=== PATIENT | female | born 1965 | race Caucasian/White ===

== ENCOUNTER 2016-11-30 18:48 | Emergency (ER) | payer OTHER ==
[2016-11-30] MEDS ORDERED: ASPIRIN 325 MG TABLET PO ONE (20:49)
[2016-11-30] MEDS ORDERED: ONDANSETRON 4 MG TAB.RAPDIS PO ONE (20:50)
--- NOTE | 2016-11-30 20:50 | ER Document Report ---
ED Medical Screen (RME) - General Chief Complaint: Nausea Stated Complaint: NAUSEA Time Seen by Provider: 11/30/16 20:44 Information source: Patient Notes: 51-year-old female who presents today stating the onset earlier today of some nausea and diaphoresis. She then developed some chest "pressure". She states a mild shortness of breath. 11 hour car travel from [place] on Tuesday. Patient denies any pain currently. She still states she is nauseous. EKG shows new anterior flipped T waves. TRAVEL OUTSIDE OF THE [place] 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 Renal/ Medical History: Denies: Hx Peritoneal Dialysis GI Medical History: Comment Only: Hx Gastroesophageal Reflux Disease - acid reflux Past Surgical History: Reports: Hx Breast Surgery, Hx Hysterectomy - 2004, Hx Tubal Ligation - 1999 - Immunizations Hx Diphtheria, Pertussis, Tetanus Vaccination: Yes Physical Exam - Vital signs Vitals: Temp Pulse Resp BP Pulse Ox 98.0 F 93 16 125/79 98 11/30/16 19:56 11/30/16 19:56 11/30/16 19:56 11/30/16 19:56 11/30/16 19:56 Course - Vital Signs Vital signs: Temp Pulse Resp BP Pulse Ox 98.0 F 93 16 125/79 98 11/30/16 19:56 11/30/16 19:56 11/30/16 19:56 11/30/16 19:56 11/30/16 19:56
[2016-11-30 21:18] LABS: ABSOLUTE BASOPHILS # (AUTO) 0.1 10^3/uL (0.0-0.2); ABSOLUTE LYMPHOCYTES (AUTO) 1.2 10^3/uL (0.5-4.7); ABSOLUTE MONOCYTES (AUTO) 0.8 10^3/uL (0.1-1.4); ABSOLUTE NEUT (AUTO) 8.6 10^3/uL (1.7-8.2); BASOPHILS % (AUTO) 0.5 % (0-2); EOSINOPHILS % (AUTO) 0.1 % (0-6); HEMATOCRIT 42.3 % (36.0-47.0); HEMOGLOBIN 13.6 g/dL (12.0-15.5); HGB HCT DIFFERENCE -1.5; LYMPHOCYTES % (AUTO) 11.6 % (13-45); MEAN CORPUSCULAR HEMOGLOBIN 27.4 pg (27.0-33.4); MEAN CORPUSCULAR HGB CONC 32.3 g/dL (32.0-36.0); MEAN CORPUSCULAR VOLUME 85 fl (80-97); MONOCYTES % (AUTO) 7.8 % (3-13); RED BLOOD COUNT 4.97 10^6/uL (3.72-5.28); RED CELL DISTRIBUTION WIDTH 14.7 % (11.5-14.0); WHITE BLOOD COUNT 10.7 10^3/uL (4.0-10.5)
[2016-11-30 21:42] LABS: ANION GAP 12 (5-19); BLOOD UREA NITROGEN 16 mg/dL (7-20); CALCIUM 9.5 mg/dL (8.4-10.2); CARBON DIOXIDE 24 mmol/L (22-30); CHLORIDE 102 mmol/L (98-107); CREATININE RESULT 0.73 mg/dL (0.52-1.25); GLUCOSE 93 mg/dL (75-110); POTASSIUM 3.8 mmol/L (3.6-5.0); SODIUM 137.5 mmol/L (137-145)
--- NOTE | 2016-11-30 22:14 | EKG REPORT ---
SEVERITY:- ABNORMAL ECG - SINUS RHYTHM NONSPECIFIC T ABNORMALITIES, ANTERIOR LEADS : Confirmed by: Melida Trejo MD 30-Nov-2016 22:13:43
--- NOTE | 2016-12-01 01:32 | ER Document Report ---
ED Cardiac - General Chief Complaint: Nausea Stated Complaint: NAUSEA Time Seen by Provider: 11/30/16 20:44 Mode of Arrival: Ambulatory Information source: Patient TRAVEL OUTSIDE OF THE [place] IN LAST 30 DAYS: No - HPI Patient complains to provider of: Chest pain, Chest tightness Was the onset of pain: Sudden Is the pain a: New problem Chest pain location: Substernal Quality of pain: Tightness Severity now: None Severity at worst: Moderate Pain level currently: 3 Chest pain precipitating factors: At Rest Cardiac risk factors: Dyslipidemia Associated symptoms: Diaphoresis, Nausea/vomiting Exacerbated by: Denies Relieved by: Nothing Similar symptoms previously: No Recently seen / treated by doctor: No Notes: Patient is a 51-year-old female with a history of high cholesterol and GERD, who presents to the emergency room complaining of 24-hour symptoms of nausea, diaphoresis, chest pain and leg pain, states it started around midnight yesterday, she received Zofran in the emergency room and reports feeling much better, she does report a history of a cardiac catheter in 2014 which was reported as normal, she recently took a road trip to [facility] which lasted approximately 10-12 hours, and she also uses an estrogen patch on the patient does not smoke - Related Data Allergies/Adverse Reactions: No Known Allergies Allergy (Unverified 12/31/14 16:14) Past Medical History - General Information source: Patient - Social History Smoking Status: Never Smoker Chew tobacco use (# tins/day): No Frequency of alcohol use: None Drug Abuse: None Family History: None Patient has suicidal ideation: No Patient has homicidal ideation: No - Past Medical History Cardiac Medical History: Reports: Hx Hypercholesterolemia Endocrine Medical History: Comment Only: 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 Renal/ Medical History: Denies: Hx Peritoneal Dialysis GI Medical History: Comment Only: Hx Gastroesophageal Reflux Disease - acid reflux Past Surgical History: Reports: Hx Breast Surgery, Hx Hysterectomy, Hx Tubal Ligation - Immunizations Hx Diphtheria, Pertussis, Tetanus Vaccination: Yes Review of Systems - Review of Systems Constitutional: See HPI EENT: No symptoms reported Cardiovascular: See HPI Respiratory: No symptoms reported Gastrointestinal: See HPI Genitourinary: No symptoms reported Female Genitourinary: No symptoms reported Musculoskeletal: No symptoms reported Skin: No symptoms reported Hematologic/Lymphatic: No symptoms reported Neurological/Psychological: No symptoms reported -: Yes All other systems reviewed and negative Physical Exam - Vital signs Vitals: Temp Pulse Resp BP Pulse Ox 98.0 F 93 16 125/79 98 11/30/16 19:56 11/30/16 19:56 11/30/16 19:56 11/30/16 19:56 11/30/16 19:56 Interpretation: Normal - General General appearance: Appears well, Alert - HEENT Head: Normocephalic, Atraumatic Eyes: Normal Pupils: PERRL - Respiratory Respiratory status: No respiratory distress Chest status: Nontender Breath sounds: Normal Chest palpation: Normal - Cardiovascular Rhythm: Regular Heart sounds: Normal auscultation Murmur: No - Abdominal Inspection: Normal Distension: No distension Bowel sounds: Normal Tenderness: Nontender Organomegaly: No organomegaly - Back Back: Normal, Nontender - Extremities General upper extremity: Normal inspection, Nontender, Normal color, Normal ROM , Normal temperature General lower extremity: Normal inspection, Nontender, Normal color, Normal ROM , Normal temperature, Normal weight bearing. No: Marleny's sign - Neurological Neuro grossly intact: Yes Cognition: Normal Orientation: AAOx4 [place] Coma Scale Eye Opening: Spontaneous [place] Coma Scale Verbal: Oriented [place] Coma Scale Motor: Obeys Commands [place] Coma Scale Total: 15 Speech: Normal Motor strength normal: LUE, RUE, LLE, RLE Sensory: Normal - Psychological Associated symptoms: Normal affect, Normal mood - Skin Skin Temperature: Warm Skin Moisture: Dry Skin Color: Normal Course - Re-evaluation Re-evalutation: 12/01/16 01:34 Patient with risk factors for possible PE, including hormone replacement therapy and a recent long road trip, therefore CTA has been ordered to rule out PE 12/01/16 02:40 Lab and imaging findings discussed with patient at bedside which are unremarkable, she will be discharged with a Zofran dose pack and information for follow-up, advised to return if symptoms worsen, patient acknowledges understanding and agreement with this plan - Vital Signs Vital signs: Temp Pulse Resp BP Pulse Ox 98.0 F 85 16 105/64 97 11/30/16 19:56 12/01/16 02:13 12/01/16 02:13 12/01/16 02:13 12/01/16 02:13 - Laboratory Result Diagrams: 11/30/16 21:00 11/30/16 21:00 Laboratory results interpreted by me: 11/30/16 21:00 WBC 10.7 H RDW 14.7 H Seg Neutrophils % 80.0 H Lymphocytes % 11.6 L Absolute Neutrophils 8.6 H - Diagnostic Test Radiology reviewed: Image reviewed, Reports reviewed - EKG Interpretation by Me EKG shows normal: Sinus rhythm Rate: Normal Rhythm: NSR When compared to previous EKG there are: Changes noted - Patient has inverted T waves in anterior leads Discharge - Discharge Clinical Impression: Nausea, Epigastric abdominal pain Chest pain Qualifiers: Chest pain type: unspecified Qualified Code(s): R07.9 - Chest pain, unspecified Condition: Stable Disposition: HOME, SELF-CARE Instructions: Antinausea Medication ([facility]), Abdominal Pain ([facility]), Chest Pain of Unclear Cause ([facility]) Additional Instructions: Follow up with your primary care provider in one to 2 days. Return to the emergency room immediately if symptoms worsen or any additional concerns.
[2016-12-01] MEDS ORDERED: ONDANSETRON ODT 4 MG TAB (6 TAB/DSPK) PO PRN (02:41)
[2016-12-01 03:06] VITALS: BP 116/82
== END 2016-12-01 03:04 | disposition home or self-care (01) ==
LOC: ER 18:48
DX: R11.2 Nausea with vomiting, unspecified (principal); R10.13 Epigastric pain; R07.89 Other chest pain; R61 Generalized hyperhidrosis; Z87.19 Personal history of other diseases of the digestive system; M79.606 Pain in leg, unspecified; E11.9 Type 2 diabetes mellitus without complications; Z79.890 Hormone replacement therapy
CPT/HCPCS: 93005; 99284; 36415; 85025; 80048; 84484; 71020; 71275; 93010; S0119

== ENCOUNTER 2018-03-06 09:49 | Emergency (ER) | payer OTHER ==
--- NOTE | 2018-03-06 10:26 | EKG REPORT ---
SEVERITY:- BORDERLINE ECG - SINUS RHYTHM BORDERLINE T ABNORMALITIES, ANTERIOR LEADS : Confirmed by: Julianne Faulkner 06-Mar-2018 10:26:09
[2018-03-06] MEDS ORDERED: ASPIRIN 81 MG TABLET, CHEWABLE PO ONE (11:14)
--- NOTE | 2018-03-06 11:16 | ER Document Report ---
ED Medical Screen (RME) - General Mode of Arrival: Ambulatory Information source: Patient TRAVEL OUTSIDE OF THE [place] IN LAST 30 DAYS: No <JESSIE CORTEZ - Last Filed: 03/06/18 11:15> <MONTEZ ALEX - Last Filed: 03/06/18 19:24> - General Chief Complaint: Chest Tightness Stated Complaint: CHEST PAIN Time Seen by Provider: 03/06/18 11:14 Notes: 52-year-old female with a history of diabetes, dyslipidemia who presents to the emergency room with intermittent chest tightness and fluttering the chest. Patient has had similar symptoms in the past. She did have a normal cardiac catheterization in 2014 because she was having similar symptoms as well as an abnormal EKG at that time. She now is followed by [facility]. She states that in the past week, the fluttering the chest and the chest tightness have been coming and going every day. She states that that is changed. She denies any smoking history. 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 Renal/ Medical History: Denies: Hx Peritoneal Dialysis GI Medical History: Reports: Hx Gastroesophageal Reflux Disease - acid reflux Past Surgical History: Reports: Hx Breast Surgery, Hx Hysterectomy, Hx Tubal Ligation - Immunizations Hx Diphtheria, Pertussis, Tetanus Vaccination: Yes <JESSIE CORTEZ - Last Filed: 03/06/18 11:15> - Vital signs Vitals: Temp Pulse Resp BP Pulse Ox 98.6 F 85 16 139/86 H 98 03/06/18 09:54 03/06/18 09:54 03/06/18 09:54 03/06/18 09:54 03/06/18 09:54 Course - Laboratory Result Diagrams: 03/06/18 11:37 03/06/18 11:37 <MONTEZ ALEX - Last Filed: 03/06/18 19:24> - Vital Signs Vital signs: Temp Pulse Resp BP Pulse Ox 98.6 F 85 16 139/86 H 98 03/06/18 09:54 03/06/18 09:54 03/06/18 09:54 03/06/18 09:54 03/06/18 09:54 - Laboratory Laboratory results interpreted by me: 03/06/18 11:37 RDW 15.6 H Doctor's Discharge <JESSIE CORTEZ - Last Filed: 03/06/18 11:15> <MONTEZ ALEX - Last Filed: 03/06/18 19:24> - Discharge Clinical Impression: Palpitation, Shortness of breath Condition: Good Disposition: HOME, SELF-CARE Instructions: Palpitations (Irregular or Rapid Heartrate) ([facility]), Chest Pain of Unclear Cause ([facility]) Additional Instructions: You were seen today for your palpitations, you had an evaluation including multiple blood tests a chest x-ray and EKG none of which showed what was the cause of your palpitations. You should call your primary physician in regards to today's visit. It is possible that your palpitations are a result of your seasonal allergies, some undiagnosed underlying condition, your primary heart problem which may benefit from a monitor. Return for worsening shortness of breath or chest pains. You may use the steroids prescribed to you to help with the inflammation in your lungs if you like. Prescriptions: Prednisone [Deltasone 20 mg Tablet] 3 tab PO DAILY 5 Days #15 tablet
--- NOTE | 2018-03-06 12:21 | RADIOLOGY REPORT (SQ) ---
EXAM DESCRIPTION: CHEST SINGLE VIEW COMPLETED DATE/TIME: 03/06/2018 11:54 am REASON FOR STUDY: cp COMPARISON: 11/30/2016 EXAM PARAMETERS: NUMBER OF VIEWS: One view. TECHNIQUE: Single frontal radiographic view of the chest acquired. RADIATION DOSE: NA LIMITATIONS: None. FINDINGS: LUNGS AND PLEURA: No opacities, masses or pneumothorax. No pleural effusion. MEDIASTINUM AND HILAR STRUCTURES: No masses. Contour normal. HEART AND VASCULAR STRUCTURES: Heart normal in size. Normal vasculature. BONES: No acute findings. HARDWARE: None in the chest. OTHER: No other significant finding. IMPRESSION: NO ACUTE RADIOGRAPHIC FINDING IN THE CHEST. TECHNICAL DOCUMENTATION: JOB ID: [id number] [employer] All Rights Reserved Reading location - IP/workstation name: [email or web address]
[2018-03-06] MEDS ORDERED: ASPIRIN 81 MG TABLET, CHEWABLE ONE (15:31)
[2018-03-06 15:39] LABS: ABSOLUTE BASOPHILS # (AUTO) 0.1 10^3/uL (0.0-0.2); ABSOLUTE EOSINOPHILS # (AUTO) 0.1 10^3/uL (0.0-0.6); ABSOLUTE LYMPHOCYTES (AUTO) 3.2 10^3/uL (0.5-4.7); ABSOLUTE MONOCYTES (AUTO) 0.6 10^3/uL (0.1-1.4); BASOPHILS % (AUTO) 0.8 % (0-2); EOSINOPHILS % (AUTO) 1.3 % (0-6); HEMATOCRIT 39.1 % (36.0-47.0); LYMPHOCYTES % (AUTO) 35.8 % (13-45); MEAN CORPUSCULAR HEMOGLOBIN 27.8 pg (27.0-33.4); MEAN CORPUSCULAR HGB CONC 33.3 g/dL (32.0-36.0); MEAN CORPUSCULAR VOLUME 84 fl (80-97); MONOCYTES % (AUTO) 6.6 % (3-13); PLATELET COUNT 275 10^3/uL (150-450); RED BLOOD COUNT 4.67 10^6/uL (3.72-5.28); RED CELL DISTRIBUTION WIDTH 15.6 % (11.5-14.0); SEGMENTED NEUTROPHILS % (AUTO) 55.5 % (42-78); TOTAL CELLS COUNTED % (AUTO) 100 %
[2018-03-06 15:46] LABS: ALANINE AMINOTRANSFERASE 19 U/L (9-52); ALBUMIN 4.3 g/dL (3.5-5.0); ALKALINE PHOSPHATASE 62 U/L (38-126); ANION GAP 13 (5-19); ASPARTATE AMINO TRANSFERASE 26 U/L (14-36); BILIRUBIN,DIRECT 0.3 mg/dL (0.0-0.4); BILIRUBIN,TOTAL 0.7 mg/dL (0.2-1.3); BLOOD UREA NITROGEN 16 mg/dL (7-20); CALCIUM 9.5 mg/dL (8.4-10.2); CARBON DIOXIDE 25 mmol/L (22-30); CHLORIDE 104 mmol/L (98-107); CREATINE KINASE 68 U/L (30-135); GLUCOSE 93 mg/dL (75-110); POTASSIUM 4.3 mmol/L (3.6-5.0); SODIUM 142.1 mmol/L (137-145); TOTAL PROTEIN 7.5 g/dL (6.3-8.2)
[2018-03-06 15:57] LABS: CREATINE KINASE MB 0.48 ng/mL (<4.55)
[2018-03-06 15:59] LABS: TROPONIN I < 0.012 ng/mL
[2018-03-06 17:03] VITALS: BP 122/85
--- NOTE | 2018-03-06 19:29 | ER Document Report ---
ED Cardiac - General Chief Complaint: Chest Tightness Stated Complaint: CHEST PAIN Time Seen by Provider: 03/06/18 11:14 Mode of Arrival: Ambulatory TRAVEL OUTSIDE OF THE [place] IN LAST 30 DAYS: No - HPI Patient complains to provider of: Chest tightness - This 52-year-old female presents for evaluation of palpitations as well as some shortness of breath which she has had for the last 2 years, she has been evaluated multiple times for this in the past and was attempting to obtain standard outpatient follow-up today with her primary physician when she contacted them because of the symptoms they said that she needed to come to the emergency room. She notes that she has been seen by consulting nurse as well as her primary physician for this complaint multiple times undergone a catheterization as well as a stress test without any obvious cause of her being identified. Nothing is ever seen to make the symptoms any better, she has never tried any specific medications to help with the palpitations. She denies any recent ingestions stimulants or other possible underlying causes. 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 Renal/ Medical History: Denies: Hx Peritoneal Dialysis GI Medical History: Reports: Hx Gastroesophageal Reflux Disease - acid reflux Past Surgical History: Reports: Hx Breast Surgery, Hx Hysterectomy, Hx Tubal Ligation - Immunizations Hx Diphtheria, Pertussis, Tetanus Vaccination: Yes Review of Systems - Review of Systems -: Yes All other systems reviewed and negative Physical Exam - Vital signs Vitals: Temp Pulse Resp BP Pulse Ox 98.6 F 85 16 139/86 H 98 03/06/18 09:54 03/06/18 09:54 03/06/18 09:54 03/06/18 09:54 03/06/18 09:54 - General General appearance: Appears well In distress: None - HEENT Head: Normocephalic Eyes: Normal Conjunctiva: Normal Cornea: Normal - Respiratory Respiratory status: No respiratory distress Chest status: Nontender Breath sounds: Normal Chest palpation: Normal - Cardiovascular Rhythm: Regular Heart sounds: Normal auscultation Murmur: No - Abdominal Inspection: Normal Distension: No distension Tenderness: Nontender - Back Back: Normal - Extremities General upper extremity: Normal inspection General lower extremity: Normal inspection - Neurological Neuro grossly intact: Yes Cognition: Normal Orientation: AAOx4 - Psychological Associated symptoms: Normal affect Course - Re-evaluation Re-evalutation: 03/06/18 19:27 This 52-year-old female presented for evaluation of palpitations and chest tightness which she has had for the last 2 years. She is undergone a myriad of tests related to this without any obvious cause of her being identified for her symptoms. She has had her thyroid checked as well as had a catheterization stress test in the examinations all which have been nondiagnostic. She does have a history of hypertension and prediabetes. Otherwise has no complaints at this time. Examination and while she is at rest she is not actively having the symptoms. This patient's remarkably well appearing on examination while on monitor she has nondiagnostic EKG, has no runs of arrhythmia that are appreciable on the monitor despite her having symptoms at that time, she has got a negative initial troponin and unremarkable chemistry count. Patient with 2 negative troponins. Spoke with her at length about the potential underlying causes of palpitations, she has in the past had a cough and some potential shortness of breath she believes may be related to her lungs that she has been told she has asthma once and then allergies being treated with an inhaler only with minimal symptomatic improvement. As her symptoms have seemed to worsen since the weather has changed will attempt to improve her symptoms utilizing brief course of steroids. Encouraged to follow-up with her primary physician as she was previously scheduled to today for further possible diagnostics including but not limited to potentially a Holter monitor repeat stress test or further blood work. I spoke to her about the importance of follow-up in case of any worsening. Patient was ambulatory and symptom-free at the time of discharge. - Vital Signs Vital signs: Temp Pulse Resp BP Pulse Ox 98.6 F 85 16 122/85 100 03/06/18 09:54 03/06/18 09:54 03/06/18 16:01 03/06/18 16:01 03/06/18 16:01 - Laboratory Result Diagrams: 03/06/18 11:37 03/06/18 11:37 Laboratory results interpreted by me: 03/06/18 11:37 RDW 15.6 H Discharge - Discharge Clinical Impression: Palpitation, Shortness of breath Condition: Good Disposition: HOME, SELF-CARE Instructions: Chest Pain of Unclear Cause ([facility]), Palpitations (Irregular or Rapid Heartrate) ([facility]) Additional Instructions: You were seen today for your palpitations, you had an evaluation including multiple blood tests a chest x-ray and EKG none of which showed what was the cause of your palpitations. You should call your primary physician in regards to today's visit. It is possible that your palpitations are a result of your seasonal allergies, some undiagnosed underlying condition, your primary heart problem which may benefit from a monitor. Return for worsening shortness of breath or chest pains. You may use the steroids prescribed to you to help with the inflammation in your lungs if you like. Prescriptions: Prednisone [Deltasone 20 mg Tablet] 3 tab PO DAILY 5 Days #15 tablet Referrals: MABLE TOBIN DO [Primary Care Provider] - Follow up as needed
== END 2018-03-06 17:02 | disposition home or self-care (01) ==
LOC: ER 09:49
DX: R00.2 Palpitations (principal); R06.02 Shortness of breath; R07.89 Other chest pain; I10 Essential (primary) hypertension
CPT/HCPCS: 36415; 71045; 80053; 82550; 82553; 84484; 85025; 93005; 93010; 99285

== ENCOUNTER 2018-11-17 05:33 | Emergency (ER) | payer OTHER ==
[2018-11-17] MEDS ORDERED: DIAZEPAM INJ 10 MG/2 ML DISP.SYRIN IV ONE (06:43)
[2018-11-17] MEDS ORDERED: NORMAL SALINE 1000 ML 1,000 ML IV ONE (06:43)
[2018-11-17] MEDS ORDERED: DIPHENHYDRAMINE HCL 50 MG/ML VIAL IV ONE (06:43)
[2018-11-17] MEDS ORDERED: ONDANSETRON HCL INJ/PF 4 MG/2 ML SDV IV ONE ×2 (06:43→06:57)
[2018-11-17] MEDS ORDERED: MECLIZINE HCL 25 MG TABLET PO ONE (06:43)
--- NOTE | 2018-11-17 06:47 | ER Document Report ---
ED General - General Chief Complaint: Abdominal Cramping Stated Complaint: ABDOMINAL PAIN Time Seen by Provider: 11/17/18 06:35 Primary Care Provider: MABLE TOBIN DO [Primary Care Provider] - Follow up as needed Mode of Arrival: Medic Information source: Patient, Emergency Med Personnel, [facility] Records Notes: 53-year-old female with diabetes, hyperlipidemia, hypertension, reflux, diverticulosis presents with complaint of left lower quadrant abdominal pain that started 6-week prior to arrival with worsening pain 1 week ago. Patient describes the pain as constant, stabbing and associated with nausea no vomiting. Patient's last bowel movement was yesterday. She denies any black or bloody stools. She does state that she has a history of constipation for which she takes medicine for intermittently. Patient denies fever, chills, chest pain, shortness of breath, dysuria, vaginal discharge, back pain TRAVEL OUTSIDE OF THE [place] IN LAST 30 DAYS: No - HPI Onset: Other Onset/Duration: Constant Quality of pain: Stabbing Severity: Mild Associated symptoms: Nausea, Other. denies: Shortness of breath Exacerbated by: Food Similar symptoms previously: Yes Recently seen / treated by doctor: No - Related Data Allergies/Adverse Reactions: No Known Allergies Allergy (Verified 03/06/18 11:06) Past Medical History - General Information source: Patient, [facility] Records - Social History Smoking Status: Never Smoker Frequency of alcohol use: None Drug Abuse: None Lives with: Family Family History: None Patient has suicidal ideation: No Patient has homicidal ideation: No - Past Medical History Cardiac Medical History: Reports: Hx Hypercholesterolemia Endocrine Medical History: Comment Only: 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 Renal/ Medical History: Denies: Hx Peritoneal Dialysis GI Medical History: Reports: Hx Gastroesophageal Reflux Disease - acid reflux Past Surgical History: Reports: Hx Breast Surgery, Hx Hysterectomy, Hx Tubal Ligation - Immunizations Hx Diphtheria, Pertussis, Tetanus Vaccination: Yes Review of Systems - Review of Systems Notes: REVIEW OF SYSTEMS: CONSTITUTIONAL : Denies fever, chills, or sweats. Denies recent illness. Denies weight loss, recent hospitalizations. EENT: Denies visual changes, eye pain. Denies sore throat, oral lesions, difficulty swallowing. CARDIOVASCULAR: Denies chest pain. Denies palpitations. Denies lower extremity edema. RESPIRATORY: Denies cough. Denies shortness of breath, wheezing. GASTROINTESTINAL: Denies abdominal distention. Denies vomiting, or diarrhea. Denies blood in vomitus, stools, or per rectum. Denies black, tarry stools. GENITOURINARY: Denies difficulty urinating, painful urination, frequency, blood in urine, or vaginal discharge. MUSCULOSKELETAL: Denies back or neck pain or stiffness. Denies joint pain or swelling. SKIN: Denies rash, lesions or sores. HEMATOLOGIC : Denies easy bruising or bleeding. LYMPHATIC: Denies swollen glands. NEUROLOGICAL: Denies confusion or altered mental status. Denies loss of consciousness. Denies dizziness or lightheadedness. Denies headache. Denies weakness or paralysis. Denies problems difficulty with ambulation, slurred speech. Denies sensory loss, numbness, or tingling. Denies seizures. PSYCHIATRIC: Denies anxiety or stress. Denies depression, suicidal ideation, or homicidal ideation. Denies visual or auditory hallucinations. Physical Exam - Vital signs Vitals: Temp Pulse Resp BP Pulse Ox 97.8 F 93 18 107/70 98 11/17/18 05:42 11/17/18 05:42 11/17/18 05:42 11/17/18 05:42 11/17/18 05:42 - Notes Notes: PHYSICAL EXAMINATION: GENERAL: Well-appearing, well-nourished and in no acute distress. HEAD: Atraumatic, normocephalic. EYES: Pupils equal round and reactive to light, extraocular movements intact, conjunctiva are normal. ENT: Nares patent, oropharynx clear without exudates. Moist mucous membranes. NECK: Normal range of motion, supple without lymphadenopathy LUNGS: Breath sounds clear to auscultation bilaterally and equal. No wheezes rales or rhonchi. HEART: Regular rate and rhythm without murmurs ABDOMEN: Soft, suprapubic and left lower quadrant abdominal pain, nondistended abdomen. No guarding, no rebound. No masses appreciated. Female : deferred Musculoskeletal: Normal range of motion, no pitting or edema. No cyanosis. NEUROLOGICAL: Cranial nerves grossly intact. Normal speech, normal gait. Normal sensory, motor exams PSYCH: Normal mood, normal affect. SKIN: Warm, Dry, normal turgor, no rashes or lesions noted. Course - Re-evaluation Re-evalutation: 11/17/18 13:33 Laboratory 11/17/18 11/17/18 11/17/18 07:35 07:55 07:55 WBC 15.6 H RBC 4.86 Hgb 13.5 Hct 40.7 MCV 84 MCH 27.7 MCHC 33.1 RDW 15.1 H Plt Count 278 Seg Neutrophils % 81.9 H Lymphocytes % 9.9 L Monocytes % 7.6 Eosinophils % 0.1 Basophils % 0.5 Absolute Neutrophils 12.7 H Absolute Lymphocytes 1.5 Absolute Monocytes 1.2 Absolute Eosinophils 0.0 Absolute Basophils 0.1 Sodium 138.2 Potassium 4.3 Chloride 101 Carbon Dioxide 27 Anion Gap 10 BUN 16 Creatinine 0.72 Est GFR ( Amer) > 60 Est GFR (Non-Af Amer) > 60 Glucose 95 Calcium 9.8 Total Bilirubin 0.8 Direct Bilirubin 0.3 Neonat Total Bilirubin Not Reportable Neonat Direct Bilirubin Not Reportable Neonat Indirect Bili Not Reportable AST 19 ALT 33 Alkaline Phosphatase 89 Total Protein 7.3 Albumin 4.4 Urine Color YELLOW Urine Appearance CLEAR Urine pH 6.0 Ur Specific [place] 1.020 Urine Protein NEGATIVE Urine Glucose (UA) NEGATIVE Urine Ketones 20 H Urine Blood NEGATIVE Urine Nitrite NEGATIVE Urine Bilirubin NEGATIVE Urine Urobilinogen NEGATIVE Ur Leukocyte Esterase NEGATIVE Urine WBC (Auto) 1 Urine RBC (Auto) 0 Squamous Epi Cells Auto 2 Urine Mucus (Auto) RARE Urine Ascorbic Acid NEGATIVE Abdomen/Pelvis CT 11/17/18 06:57 IMPRESSION: There is pancolonic diverticulosis with marked wall thickening and fat stranding about the mid sigmoid in the low pelvis. Findings are consistent with acute diverticulitis. There is no overt evidence of perforation or abscess, however very thickened section of wall of the mid sigmoid colon is suspicious for phlegmon formation (series 3, image 67). Trace free fluid in the low pelvis. Temp Pulse Resp BP Pulse Ox 98.0 F 99 18 95/66 L 95 11/17/18 12:00 11/17/18 12:00 11/17/18 12:00 11/17/18 12:00 11/17/18 12:00 53-year-old female with a history of diverticulosis presents with left lower quadrant abdominal pain. Patient has had associated nausea without vomiting. Vital signs reviewed and within normal limits. Patient is afebrile, normotensive and not hypoxic or tachycardic. CT of the abdomen pelvis is significant for acute diverticulitis. Patient has been able to tolerate p.o. She did receive Zosyn, Flagyl during her ED course. CT findings were discussed with the patient including the risk for abscess development. At this point because she is afebrile and not vomiting I feel the patient can be tried as an outpatient with antibiotics. She was encouraged to return with worsening pain, development of fever or development of vomiting. 11/17/18 13:34 Patient was evaluated and treated as appropriate for the patient's presenting symptoms and complaint, with consideration of any critical or life threatening conditions that may be associated with their obtained history and exam as noted above. All results were discussed with patient . Patient provided the opportunity to ask questions, and express concerns. Patient was educated on treatments based on their presumed diagnosis as noted above. At this time we will discharge the patient with return precautions and follow-up recommendatio ns. Verbal discharge instructions given a the bedside. Medication warnings reviewed. Patient is in agreement with this plan and has verbalized understanding of return precautions. After careful consideration I feel that that patient can be safely discharged from the emergency department, they were advised to followup with a primary care physician in 2-3 days. Dictation on this chart was performed using voice recognition software and may result in unintended grammatical, spelling, syntax or errors. - Vital Signs Vital signs: Temp Pulse Resp BP Pulse Ox 98.0 F 99 18 95/66 L 95 11/17/18 12:00 11/17/18 12:00 11/17/18 12:00 11/17/18 12:00 11/17/18 12:00 - Laboratory Result Diagrams: 11/17/18 07:55 11/17/18 07:55 Laboratory results interpreted by me: 11/17/18 11/17/18 07:35 07:55 WBC 15.6 H RDW 15.1 H Seg Neutrophils % 81.9 H Lymphocytes % 9.9 L Absolute Neutrophils 12.7 H Urine Ketones 20 H - Diagnostic Test Radiology reviewed: Image reviewed, Reports reviewed Discharge - Discharge Clinical Impression: Diverticulitis, LLQ abdominal pain, Nausea Condition: Good Disposition: HOME, SELF-CARE Instructions: Abdominal Pain ([facility]), Diverticulitis ([facility]), Nausea or Vomiting, Nonspecific ([facility]) Additional Instructions: Your CAT scan showed diverticulitis. Currently there is no perforation or abscess but this could develop so please do not hesitate to return with worsening pain, development of fever or intractable vomiting or any other symptoms that are worrisome to you. Please follow-up with your primary care physician on Tuesday if you seem to be feeling better. Follow up with your [id number] hours for further care or return to the ED IMMEDIATELY if symptoms worsen or you have any concerns. If you cannot afford to follow up with your primary care physician a list of low cost clinics have been provided at the end of your discharge papers as well. Most prescribed medications have multiple side effects. The safest thing to do is when filling your prescription speak to your pharmacist regarding possible interactions with your normal home medications and over the counter medications such as Ibuprofen, Tylenol, Benadryl. If you experience any symptoms that cause you discomfort or concern you should discontinue the medication immediately and return to the emergency room or call your primary care physician. Prescriptions: Ciprofloxacin HCl [Cipro 500 mg Tablet] 500 mg PO BID 7 Days #14 tablet Metronidazole [Flagyl] 500 mg PO BID 7 Days #14 tablet Ondansetron [Zofran Odt 4 mg Tablet] 1 - 2 tab PO Q4H PRN #15 tab.rapdis PRN Reason: For Nausea/Vomiting Oxycodone HCl/Acetaminophen [Percocet 5-325 mg Tablet] 1 tab PO Q6H PRN #15 tablet PRN Reason: Referrals: MABLE TOBIN DO [Primary Care Provider] - Follow up in 3-5 days
[2018-11-17] MEDS ORDERED: MORPHINE SULFATE 10 MG/ML INJ IV ONE (06:57)
[2018-11-17] MEDS ORDERED: DIPHENHYDRAMINE HCL 50 MG/ML VIAL ONE (07:42)
[2018-11-17 08:00] LABS: APPEARANCE,URINE CLEAR; BILIRUBIN,URINE NEGATIVE (NEGATIVE); COLOR,URINE YELLOW; GLUCOSE, URINE NEGATIVE (NEGATIVE); KETONES,URINE 20 mg/dL (NEGATIVE); LEUKOCYTE ESTERASE,URINE NEGATIVE (NEGATIVE); NITRITE,URINE NEGATIVE (NEGATIVE); PROTEIN,URINE NEGATIVE (NEGATIVE); UROBILINOGEN,URINE NEGATIVE mg/dL (<2.0)
[2018-11-17 08:03] LABS: ABSOLUTE BASOPHILS # (AUTO) 0.1 10^3/uL (0.0-0.2); ABSOLUTE LYMPHOCYTES (AUTO) 1.5 10^3/uL (0.5-4.7); ABSOLUTE MONOCYTES (AUTO) 1.2 10^3/uL (0.1-1.4); ABSOLUTE NEUT (AUTO) 12.7 10^3/uL (1.7-8.2); BASOPHILS % (AUTO) 0.5 % (0-2); EOSINOPHILS % (AUTO) 0.1 % (0-6); HEMATOCRIT 40.7 % (36.0-47.0); HEMOGLOBIN 13.5 g/dL (12.0-15.5); LYMPHOCYTES % (AUTO) 9.9 % (13-45); MEAN CORPUSCULAR HEMOGLOBIN 27.7 pg (27.0-33.4); MEAN CORPUSCULAR HGB CONC 33.1 g/dL (32.0-36.0); MEAN CORPUSCULAR VOLUME 84 fl (80-97); MONOCYTES % (AUTO) 7.6 % (3-13); PLATELET COUNT 278 10^3/uL (150-450); RED BLOOD COUNT 4.86 10^6/uL (3.72-5.28); RED CELL DISTRIBUTION WIDTH 15.1 % (11.5-14.0); SEGMENTED NEUTROPHILS % (AUTO) 81.9 % (42-78); TOTAL CELLS COUNTED % (AUTO) 100 %; WHITE BLOOD COUNT 15.6 10^3/uL (4.0-10.5)
[2018-11-17 08:42] LABS: ALANINE AMINOTRANSFERASE 33 U/L (9-52); ALBUMIN 4.4 g/dL (3.5-5.0); ALKALINE PHOSPHATASE 89 U/L (38-126); ANION GAP 10 (5-19); ASPARTATE AMINO TRANSFERASE 19 U/L (14-36); BILIRUBIN,DIRECT 0.3 mg/dL (0.0-0.4); BILIRUBIN,TOTAL 0.8 mg/dL (0.2-1.3); BLOOD UREA NITROGEN 16 mg/dL (7-20); CALCIUM 9.8 mg/dL (8.4-10.2); CARBON DIOXIDE 27 mmol/L (22-30); CHLORIDE 101 mmol/L (98-107); GLUCOSE 95 mg/dL (75-110); POTASSIUM 4.3 mmol/L (3.6-5.0); SODIUM 138.2 mmol/L (137-145); TOTAL PROTEIN 7.3 g/dL (6.3-8.2)
--- NOTE | 2018-11-17 09:39 | RADIOLOGY REPORT (SQ) ---
EXAM DESCRIPTION: CT ABD/PELVIS WITH IV ONLY COMPLETED DATE/TIME: 11/17/2018 9:21 am REASON FOR STUDY: llq pain h/o diverticulosis COMPARISON: 09/01/2015 TECHNIQUE: CT scan of the abdomen and pelvis performed using helical scanning technique with dynamic intravenous contrast injection. No oral contrast. Images reviewed with lung, soft tissue, and bone windows. Reconstructed coronal and sagittal MPR images reviewed. Delayed images for evaluation of the urinary system also acquired. All images stored on PACS. All CT scanners at this facility use dose modulation, iterative reconstruction, and/or weight based d osing when appropriate to reduce radiation dose to as low as reasonably achievable (ALARA). [facility]: Dose Right [facility]: CareDose [facility]: Dose Right [facility]: Teradose 4D [facility]: RemCare CONTRAST TYPE AND DOSE: contrast/concentration: Isovue 350.00 mg/ml; Total Contrast Delivered: 63.0 ml; Total Saline Delivered: 65.0 ml RENAL FUNCTION: GFR > 60. RADIATION DOSE: CT Rad equipment meets quality standard of care and radiation dose reduction techniq ues were employed. CTDIvol: 4.9 - 5.7 mGy. DLP: 529 mGy-cm.. LIMITATIONS: None. FINDINGS: LOWER CHEST: No significant findings. No nodules or infiltrates. LIVER: Normal size. No masses. No dilated ducts. SPLEEN: Normal size. No focal lesions. PANCREAS: No masses. No significant calcifications. No adjacent inflammation or peripancreatic fluid collections. Pancreatic duct not dilated. GALLBLADDER: No identified stones by CT criteria. No inflammatory changes to suggest cholecystitis. ADRENAL GLANDS: No significant masses or asymmetry. RIGHT KIDNEY AND URETER: No solid masses. No significant calcifications. No hydronephrosis or hyd roureter. LEFT KIDNEY AND URETER: No solid masses. No significant calcifications. No hydronephrosis or hydr oureter. AORTA AND VESSELS: No aneurysm. No dissection. Renal arteries, SMA, celiac without stenosis. RETROPERITONEUM: No retroperitoneal adenopathy, hemorrhage or masses. BOWEL AND PERITONEAL CAVITY: There is pancolonic diverticulosis with marked wall thickening and fat s tranding about the mid sigmoid in the low pelvis. There is no overt evidence of perforation or absce ss, however very thickened section of wall of the mid sigmoid colon is suspicious for phlegmon format ion (series 3, image 67). Trace free fluid in the low pelvis. APPENDIX: Normal. PELVIS: No mass. Status post hysterectomy. Normal bladder. ABDOMINAL WALL: No masses. No hernias. BONES: No significant or acute findings. OTHER: No other significant finding. IMPRESSION: There is pancolonic diverticulosis with marked wall thickening and fat stranding about t he mid sigmoid in the low pelvis. Findings are consistent with acute diverticulitis. There is no ov ert evidence of perforation or abscess, however very thickened section of wall of the mid sigmoid col on is suspicious for phlegmon formation (series 3, image 67). Trace free fluid in the low pelvis. TECHNICAL DOCUMENTATION: JOB ID: [id number] Quality ID # [id number]: Final reports with documentation of one or more dose reduction techniques (e.g., Au tomated exposure control, adjustment of the mA and/or kV according to patient size, use of iterative reconstruction technique) 2010 [employer]- All Rights Reserved Reading location - IP/workstation name: [email or web address]
[2018-11-17] MEDS ORDERED: PIPERACILLIN/TAZOBACTAM 3.375 GM VIAL IV ONE (09:43)
[2018-11-17] MEDS ORDERED: METRONIDAZOLE 500 MG TABLET PO ONE (09:43)
[2018-11-17] MEDS ORDERED: FENTANYL CITRATE INJ/PF 100 MCG/2 ML AMPUL IV ONE (09:45)
[2018-11-17] MEDS ORDERED: RINGERS SOLUTION,LACTATED 1,000 ML IV ONE (09:45)
[2018-11-17 12:14] VITALS: BP 95/66
== END 2018-11-17 12:14 | disposition home or self-care (01) ==
LOC: ER 05:33
DX: K57.92 Diverticulitis of intestine, part unspecified, without perforation or abscess without bleeding (principal); R10.32 Left lower quadrant pain; R11.0 Nausea; E78.00 Pure hypercholesterolemia, unspecified; K21.9 Gastro-esophageal reflux disease without esophagitis; Z90.710 Acquired absence of both cervix and uterus
CPT/HCPCS: 99284; 96375; 96365; 96366; 36415; 85025; 80053; 81001; 74177; J3010; J2270; J2405; J7120; J2543

== ENCOUNTER 2019-03-11 20:25 | Emergency (ER) | payer OTHER ==
[2019-03-11 20:36] VITALS: BP 110/83
[2019-03-11] MEDS ORDERED: NORMAL SALINE 1000 ML 1,000 ML IV ONE (20:46)
[2019-03-11] MEDS ORDERED: ONDANSETRON 4 MG TAB.RAPDIS PO ONE (20:52)
[2019-03-11] MEDS ORDERED: OXYCODONE-ACETAMINOPHEN 5-325 MG TABLET PO ONE (20:52)
[2019-03-11] MEDS ORDERED: AMOXICILLIN TR/POT CLAVULANATE 500-125 MG TAB PO ONE (20:52)
--- NOTE | 2019-03-11 20:57 | ER Document Report ---
ED GI/ - General Chief Complaint: Abdominal Pain Stated Complaint: LOWER LEFT SIDED ABDOMINAL PAIN Time Seen by Provider: 03/11/19 20:40 Primary Care Provider: MABLE TOBIN DO [Primary Care Provider] - Follow up as needed Mode of Arrival: Ambulatory Information source: Patient Notes: 53-year-old female presented to ED for left lower pelvic/abdominal pain since 4 AM in the morning. She denies any urinary frequency urgency or diarrhea. She states she does have a history of diverticulitis and the pain is the same as when she had the diverticulitis. She was diagnosed with diverticulitis in November of this year. Patient is alert oriented respirations regular and unlabored speaking in full sentences. It is painful to walk. She is afebrile at this time. I have discussed her history and physical with Dr. Roland. She did see the patient the last time she came in and diagnosed her with diverticulitis. She states there is no need to get pictures and IVs and labs to just treated with the Augmentin and that her follow-up with her primary care doctor. She also recommended given pain medicine and nausea medicine. I have written the patient for some Augmentin, Zofran, and Percocet and discharged her home with prescriptions for the same. Patient verbalized she would follow-up with her primary care doctor tomorrow. TRAVEL OUTSIDE OF THE [place] IN LAST 30 DAYS: No - HPI Patient complains to provider of: Abdominal pain, Other - nasuea Onset: This morning - 4 am Timing/Duration: Persistent Quality of pain: Sharp Severity at maximum: Moderate Severity in ED: Moderate Pain Level: 4 - He had a witnessed seizure Location: LLQ Vaginal bleeding (Compared to normal period): None Associated symptoms: Nausea Exacerbated by: Movement, Walking, Food Relieved by: Denies Similar symptoms previously: Yes Recently seen / treated by doctor: Yes - Related Data Allergies/Adverse Reactions: No Known Allergies Allergy (Verified 03/06/18 11:06) Past Medical History - General Information source: Patient - Social History Smoking Status: Never Smoker Chew tobacco use (# tins/day): No Frequency of alcohol use: None Drug Abuse: None Occupation: entry level programmer Lives with: Family Family History: None Patient has suicidal ideation: No Patient has homicidal ideation: No - Past Medical History Cardiac Medical History: Reports: Hx Hypercholesterolemia, Hx Hypertension Pulmonary Medical History: Reports: Hx Asthma EENT Medical History: Reports: None Neurological Medical History: Reports: None Endocrine Medical History: Reports: 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 Renal/ Medical History: Reports: None Malignancy Medical History: Reports: None GI Medical History: Reports: Hx Diverticulitis, Hx Gastroesophageal Reflux Disease - acid reflux Musculoskeletal Medical History: Reports None Skin Medical History: Reports None Psychiatric Medical History: Reports: None Traumatic Medical History: Reports: None Infectious Medical History: Reports: None Past Surgical History: Reports: Hx Breast Surgery - Breast reduction, Hx Hysterectomy, Hx Tubal Ligation, Other - Tummy tuck - Immunizations Hx Diphtheria, Pertussis, Tetanus Vaccination: Yes Review of Systems - Review of Systems Constitutional: No symptoms reported EENT: No symptoms reported Cardiovascular: No symptoms reported Respiratory: No symptoms reported Gastrointestinal: Abdominal pain, Nausea - Left lower quadrant, Poor appetite Genitourinary: No symptoms reported Female Genitourinary: No symptoms reported Musculoskeletal: No symptoms reported Skin: No symptoms reported Hematologic/Lymphatic: No symptoms reported Neurological/Psychological: No symptoms reported -: Yes All other systems reviewed and negative Physical Exam - Vital signs Vitals: Temp Pulse Resp BP Pulse Ox 97.6 F 100 16 110/83 97 03/11/19 20:34 03/11/19 20:34 03/11/19 20:34 03/11/19 20:34 03/11/19 20:34 Interpretation: Normal - General General appearance: Appears well, Alert - HEENT Head: Normocephalic, Atraumatic Eyes: Normal Pupils: PERRL - Respiratory Respiratory status: No respiratory distress Chest status: Nontender Breath sounds: Normal Chest palpation: Normal - Cardiovascular Rhythm: Regular Heart sounds: Normal auscultation Murmur: No - Abdominal Inspection: Normal Distension: No distension Bowel sounds: Hyperactive Tenderness: Tender - Left lower quadrant, Guarding Organomegaly: No organomegaly - Back Back: Normal, Nontender - Extremities General upper extremity: Normal inspection, Nontender, Normal color, Normal ROM, Normal temperature General lower extremity: Normal inspection, Nontender, Normal color, Normal ROM, Normal temperature, Normal weight bearing. No: Marleny's sign - Neurological Neuro grossly intact: Yes Cognition: Normal Orientation: AAOx4 Niko Coma Scale Eye Opening: Spontaneous [place] Coma Scale Verbal: Oriented [place] Coma Scale Motor: Obeys Commands [place] Coma Scale Total: 15 Speech: Normal Motor strength normal: LUE, RUE, LLE, RLE Sensory: Normal - Psychological Associated symptoms: Normal affect, Normal mood - Skin Skin Temperature: Warm Skin Moisture: Dry Skin Color: Normal Course - Vital Signs Vital signs: Temp Pulse Resp BP Pulse Ox 97.6 F 100 16 110/83 97 03/11/19 20:34 03/11/19 20:34 03/11/19 20:34 03/11/19 20:34 03/11/19 20:34 Discharge - Discharge Clinical Impression: History of diverticulitis Abdominal pain Qualifiers: Abdominal location: left lower quadrant Qualified Code(s): R10.32 - Left lower quadrant pain Condition: Stable Disposition: HOME, SELF-CARE Additional Instructions: ABDOMINAL PAIN: There are many causes of abdominal pain. Pain can mean a serious problem requiring surgery (such as appendicitis). It can also be an innocent problem that goes away on its own (such as a viral infection). Often, time must pass to determine the cause of pain. The physician does not feel that hospitalization is necessary, at present. Things may change within the next 24 hours. Call the doctor or come back for re- examination if any problems occur, such as: (1) Pain that becomes more severe, steady, or becomes concentrated in one specific area. Also, pain that is more severe with movement or coughing. (2) Vomiting that persists or becomes more frequent. (3) Blood in the vomitus, urine, or bowel movements. Blood in the stool may have a tarry or black appearance. (4) Shaking chills or fever greater than 100 degrees F. (5) The abdomen becomes more distended or swollen. (6) Bowel movements cease. (7) Failure to improve as expected. Diverticulitis You have been diagnosed as having diverticulitis recently will treat with augmentin. This is an inflammation of a small pouch attached to the colon, called a diverticulum. Many of these small pouches can form on the colon as you get older. They are often caused by constipation. When inflamed or infected, symptoms arise -- usually abdominal pain, constipation or diarrhea, fever, and blood in the stool. Severe diverticulitis may require hospitalization. More mild cases are usually treated with antibiotics and clear liquid diet. As you improve, a diet low in residue (one which forms little stool) is prescribed. When you are better, you should eat a high-fiber diet. Stool softeners (like Metamucil) are usually recommended. Call the doctor or go to the hospital if there is increasing pain, vomiting, high fever, large amounts of blood passed, or if bowel movements cease. ANTINAUSEA MEDICATION: You have been given a medication to suppress nausea and vomiting. This type of medication can be given as a shot, pill, or suppository. It will usually last for many hours. Pills and shots usually last six to eight hours, suppositories last about 12 hours. For the typical illness, only one or two doses of the medication may be necessary. Mild lightheadedness may occur. This type of medicine can cause drowsiness. Do not drive or operate dangerous machinery while under its influence. Do not mix with alcohol. See your doctor at once if you have muscle spasms or tightness, or uncontrollable motions (particularly of the neck, mouth, or jaw). Persistent vomiting or severe lightheadedness should also be evaluated by the physician. ORAL NARCOTIC MEDICATION: You have been given a prescription for pain control. This medication is a narcotic. It's best taken with food, as nausea can result if taken on an empty stomach. Don't operate machinery or drive within six hours of taking this medication. Do not combine this medicine with alcohol, or with any medication which can cause sedation (such as cold tablets or sleeping pills) unless you get permission from the physician. Narcotics tend to cause constipation. If possible, drink plenty of fluids and eat a diet high in fiber and fruits. Please be aware that prescription narcotics also have the potential for abuse. People become addicted to these medications because of the general sense of wellbeing that they induce. This feeling along with a significant reduction in tension, anxiety, and aggression provides a stimulating seductive quality to these drugs. Once your pain is under control, we encourage you to discard your unused narcotics. FOLLOW-UP CARE: If you have been referred to a physician for follow-up care, call the physicians office for an appointment as you were instructed or within the next two days. If you experience worsening or a significant change in your symptoms, notify the physician immediately or return to the Emergency Department at any time for re-evaluation. Prescriptions: Amox Tr/Potassium Clavulanate [Augmentin 875-125 Tablet] 1 tab PO BID 10 Days tablet Oxycodone HCl/Acetaminophen [Percocet 5-325 mg Tablet] 1 tab PO Q6 #10 tablet Ondansetron [Zofran Odt 4 mg Tablet] 1 tab PO Q6H #15 tab.rapdis Forms: Return to Work Referrals: MABLE TOBIN DO [Primary Care Provider] - Follow up tomorrow
== END 2019-03-11 21:07 | disposition home or self-care (01) ==
LOC: ER 20:25
DX: R10.32 Left lower quadrant pain (principal); Z87.19 Personal history of other diseases of the digestive system
CPT/HCPCS: 99283; S0119

== ENCOUNTER 2019-04-04 18:07 | Emergency (ER) | payer OTHER ==
[2019-04-04 22:27] LABS: ABSOLUTE BASOPHILS # (AUTO) 0.1 10^3/uL (0.0-0.2); ABSOLUTE LYMPHOCYTES (AUTO) 2.6 10^3/uL (0.5-4.7); ABSOLUTE NEUT (AUTO) 11.4 10^3/uL (1.7-8.2); BASOPHILS % (AUTO) 0.5 % (0-2); EOSINOPHILS % (AUTO) 0.1 % (0-6); HEMATOCRIT 39.3 % (36.0-47.0); HEMOGLOBIN 13.1 g/dL (12.0-15.5); LYMPHOCYTES % (AUTO) 17.3 % (13-45); MEAN CORPUSCULAR HEMOGLOBIN 28.1 pg (27.0-33.4); MEAN CORPUSCULAR HGB CONC 33.2 g/dL (32.0-36.0); MEAN CORPUSCULAR VOLUME 84 fl (80-97); MONOCYTES % (AUTO) 6.8 % (3-13); PLATELET COUNT 272 10^3/uL (150-450); RED BLOOD COUNT 4.65 10^6/uL (3.72-5.28); RED CELL DISTRIBUTION WIDTH 15.2 % (11.5-14.0); SEGMENTED NEUTROPHILS % (AUTO) 75.3 % (42-78); TOTAL CELLS COUNTED % (AUTO) 100 %; WHITE BLOOD COUNT 15.1 10^3/uL (4.0-10.5)
--- NOTE | 2019-04-04 22:29 | ER Document Report ---
ED GI/ - General Chief Complaint: Abdominal Pain Stated Complaint: LEFT LOWER ABDOMINAL PAIN Time Seen by Provider: 04/04/19 22:28 Primary Care Provider: MABLE TOBIN DO [Primary Care Provider] - Follow up as needed Mode of Arrival: Ambulatory Information source: Patient TRAVEL OUTSIDE OF THE [place] IN LAST 30 DAYS: No - HPI Patient complains to provider of: Abdominal pain Onset: Yesterday Timing/Duration: Gradual, Persistent Quality of pain: Achy, Cramping Severity at maximum: Moderate Severity in ED: Mild Pain Level: 2 Location: LLQ Vaginal bleeding (Compared to normal period): None Menstrual period history: Post-menopausal Sexual history: Inactive Associated symptoms: None Exacerbated by: Movement, Walking Relieved by: Denies Similar symptoms previously: Yes Recently seen / treated by doctor: No - Related Data Allergies/Adverse Reactions: No Known Allergies Allergy (Verified 03/06/18 11:06) Past Medical History - General Information source: Patient - Social History Smoking Status: Never Smoker Chew tobacco use (# tins/day): No Frequency of alcohol use: None Drug Abuse: None Lives with: Family Family History: None Patient has suicidal ideation: No Patient has homicidal ideation: No - Past Medical History Cardiac Medical History: Reports: Hx Hypercholesterolemia, Hx Hypertension Pulmonary Medical History: Reports: Hx Asthma EENT Medical History: Reports: None Neurological Medical History: Reports: None Endocrine Medical History: Reports: 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 Denies: Hx Peritoneal Dialysis Malignancy Medical History: Reports: None GI Medical History: Reports: Hx Diverticulitis, Hx Gastroesophageal Reflux Disease - acid reflux Musculoskeletal Medical History: Reports None Skin Medical History: Reports None Psychiatric Medical History: Reports: None Traumatic Medical History: Reports: None Infectious Medical History: Reports: None Past Surgical History: Reports: Hx Breast Surgery - Breast reduction, Hx Hysterectomy, Hx Tubal Ligation, Other - Tummy tuck - Immunizations Hx Diphtheria, Pertussis, Tetanus Vaccination: Yes Review of Systems - Review of Systems Constitutional: No symptoms reported EENT: No symptoms reported Cardiovascular: No symptoms reported Respiratory: No symptoms reported Gastrointestinal: See HPI, Abdominal pain Genitourinary: No symptoms reported Female Genitourinary: No symptoms reported Musculoskeletal: No symptoms reported Skin: No symptoms reported Hematologic/Lymphatic: No symptoms reported Neurological/Psychological: No symptoms reported -: Yes All other systems reviewed and negative Physical Exam - Vital signs Vitals: Temp Pulse Resp BP Pulse Ox 99.0 F 117 H 16 111/78 98 04/04/19 18:30 04/04/19 18:30 04/04/19 18:30 04/04/19 18:30 04/04/19 18:30 Interpretation: Normal Course - Re-evaluation Re-evalutation: 04/05/19 00:57 Labs consistent with likely diverticulitis. Will discharge the patient home with strict return precautions and follow-up with primary care. All results were explained to and discussed with the patient, and all questions addressed and answered. The patient voices both understanding and agreeing with the plan. - Vital Signs Vital signs: Temp Pulse Resp BP Pulse Ox 99.0 F 117 H 16 111/78 98 04/04/19 18:30 04/04/19 18:30 04/04/19 18:30 04/04/19 18:30 04/04/19 18:30 - Laboratory Result Diagrams: 04/04/19 22:16 04/04/19 22:16 Laboratory results interpreted by me: 04/04/19 04/04/19 22:16 22:16 WBC 15.1 H RDW 15.2 H Absolute Neuts (auto) 11.4 H Sodium 136.9 L Glucose 144 H Discharge - Discharge Clinical Impression: Diverticulitis Abdominal pain Qualifiers: Abdominal location: left lower quadrant Qualified Code(s): R10.32 - Left lower quadrant pain Condition: Good Disposition: HOME, SELF-CARE Instructions: Diverticulitis ([facility]) Additional Instructions: You have been evaluated in the Emergency Department for abdominal pain. While here, you had blood work and it is now safe to be discharged home. Please foll ow-up with your primary physician as instructed in one week to be rechecked. Return to the Emergency Department if you experience worsening pain, bloody stools, high fevers, or any other concerning symptoms. Prescriptions: Hydrocodone/Acetaminophen [[place] 5-325 mg Tablet] 1 tab PO Q6HP PRN #20 tablet PRN Reason: For Pain Amox Tr/Potassium Clavulanate [Augmentin 875-125 mg Tablet] 1 tab PO BID #20 tablet Referrals: MABLE TOBIN DO [Primary Care Provider] - Follow up as needed Print Language: Yi
[2019-04-04 22:41] LABS: ALBUMIN 4.1 g/dL (3.5-5.0); ALKALINE PHOSPHATASE 96 U/L (38-126); ANION GAP 11 (5-19); ASPARTATE AMINO TRANSFERASE 23 U/L (14-36); BILIRUBIN,DIRECT 0.1 mg/dL (0.0-0.4); BILIRUBIN,TOTAL 1.2 mg/dL (0.2-1.3); BLOOD UREA NITROGEN 7 mg/dL (7-20); CALCIUM 9.5 mg/dL (8.4-10.2); CARBON DIOXIDE 27 mmol/L (22-30); CHLORIDE 99 mmol/L (98-107); GLUCOSE 144 mg/dL (75-110); POTASSIUM 3.9 mmol/L (3.6-5.0)
[2019-04-04] MEDS ORDERED: AMOXICILLIN TR/POT CLAVULANATE 500-125 MG TAB PO ONE (22:58)
[2019-04-04] MEDS ORDERED: HYDROCODONE/ACETAMINOPHEN 5-325 MG TABLET PO ONE (22:58)
[2019-04-05 01:00] VITALS: BP 104/72
== END 2019-04-05 01:05 | disposition home or self-care (01) ==
LOC: ER 18:07
DX: K57.92 Diverticulitis of intestine, part unspecified, without perforation or abscess without bleeding (principal); R10.32 Left lower quadrant pain; E78.00 Pure hypercholesterolemia, unspecified; I10 Essential (primary) hypertension; E11.9 Type 2 diabetes mellitus without complications
CPT/HCPCS: 36415; 80053; 85025